=== PATIENT | female | born 2000 | race Asian ===

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

== ENCOUNTER 2018-07-24 17:26 | Inpatient (IN) | payer OTHER ==
--- NOTE | 2018-07-24 17:35 | ED ---
Psychiatric Complaint - HPI Summary HPI Summary: This pt is a 17 y/o female presenting to [facility] via EMS on a 9.45 for SI. Pt reports she told her friend about her suicidal plan and her friend walked her to the crisis center at [facility]. Pt spoke to a therapist at the crisis center and reported SI comments. Pt reports SI thoughts and plan of taking a knife from her kitchen at night time and going to one of the bushes around [place] to kill herself. She notes prior SI attempts of taking a knife to cut her wrist, although she states no recent attempts. Pt notes she has never been hospitalized for mental health in the past. She takes Lexapro and has been taking it for the past 2.5 years. - History Of Current Complaint Time Seen by Provider: 07/24/18 17:28 Hx Obtained From: Patient Hx Last Menstrual Period: 03/25/17 Onset/Duration: Lasting Days, Still Present Timing: Days Severity Currently: Severe Character: Depressed Aggravating Factor(s): Nothing Alleviating Factor(s): Nothing Related History: Positive For: Prior Psychiatric Issues Has Suicidal: Reports: Thoughts, With A Plan Has Homicidal: Denies: Thoughts, With A Plan - Allergies/Home Medications Allergies/Adverse Reactions: Allergies Allergy/AdvReac Type Severity Reaction Status Date / Time Sulfa (Sulfonamide Allergy Intermediate Hives Verified 07/24/18 17:58 Antibiotics) Home Medications: Home Medications Desloratidine (NF) [Clarinex (NF)] 5 mg PO DAILY 07/24/18 [History Confirmed ] Escitalopram (NF) [Lexapro 5 mg (NF)] 3.5 - 4 tab PO DAILY MDD 20 07/24/18 [ History Confirmed 07/24/18] LevoCETirizine TAB (NF) [Xyzal TAB (NF)] 5 mg PO BEDTIME 07/24/18 [History Confirmed 07/24/18] Levonorgestrel-Ethin Estradiol [Vienva-28 Tablet] 1 tab PO DAILY 07/24/18 [ History Confirmed 07/24/18] Triamcinolone 0.1% Cr 15gm -NF [Triamcinolone Acetonide] 1 applic TOPICAL BID [History Confirmed 07/24/18] PMH/Surg Hx/FS Hx/Imm Hx Endocrine/Hematology History: Denies: Hx Diabetes Cardiovascular History: Denies: Hx Hypertension, Hx Pacemaker/ICD History: Denies: Hx Dialysis, Hx Renal Disease Sensory History: Denies: Hx Hearing Aid Psychiatric History: Reports: Hx Anxiety, Hx Depression Denies: Hx Panic Disorder - Family History Known Family History: Positive: Other - depression - Social History Occupation: Student - at [employer] Alcohol Use: None Substance Use Type: Reports: Prescribed Smoking Status (MU): Never Smoked Tobacco Review of Systems Negative: Fever, Chills Cardiovascular: Negative Respiratory: Negative Psychological: Other - POS: SI thoughts with plan Positive: Depressed. Negative: Other - NEG: HI All Other Systems Reviewed And Are Negative: Yes Physical Exam - Summary Physical Exam Summary: Appearance: The patient is well-nourished in no acute distress and in no acute pain. Skin: The skin is warm and dry and skin color reflects adequate perfusion. HEENT: The head is normocephalic and atraumatic. The pupils are equal and reactive. The conjunctivae are clear and without drainage. Nares are patent and without drainage. Mouth reveals moist mucous membranes and the throat is without erythema and exudate. The external ears are intact. The ear canals are patent and without drainage. The tympanic membranes are intact. Neck: the neck is supple with full range of motion and non-tender. There are no carotid bruits. There is no neck vein distension. Respiratory: Chest is non-tender. Lungs are clear to auscultation and breath sounds are symmetrical and equal. Cardiovascular: Heart is regular rate and rhythm. There is no murmur or rub auscultated. There is no peripheral edema and pulses are symmetrical and equal. Abdomen: The abdomen is soft and non-tender. There are normal bowel sounds heard in all four quadrants and there is no organomegaly palpated. Musculoskeletal: There is no back tenderness noted. Extremities are non-tender with full range of motion. There is good capillary refill. There is no peripheral edema or calf tenderness elicited. Neurological: Patient is alert and oriented to person, place and time. The patient has symmetrical motor strength in all four extremities. Cranial nerves are grossly intact. Deep tendon reflexes are symmetrical and equal in all four extremities. Psychiatric: The patient has labile affect. Triage Information Reviewed: Yes Vital Signs On Initial Exam: Initial Vitals Temp Pulse Resp BP Pulse Ox 97.6 F 88 16 112/65 98 07/24/18 17:36 07/24/18 17:36 07/24/18 17:36 07/24/18 17:36 07/24/18 17:36 Vital Signs Reviewed: Yes Diagnostics - Laboratory Result Diagrams: 07/24/18 18:24 07/24/18 18:24 Lab Statement: Any lab studies that have been ordered have been reviewed, and results considered in the medical decision making process. Course/Dx - Course Assessment/Plan: Pt was medically cleared. She is waiting for a mental health evaluation. Pt will be signed out to Dr. Mar at shift change pending MHE. - Differential Dx/Clinical Impression Provider Diagnosis: Depression Discharge - Sign-Out/Discharge Documenting (check all that apply): Sign-Out Patient Signing out patient TO: Stephanie Mar - pending MHE Patient Received Moderate/Deep Sedation with Procedure: No - Discharge Plan Condition: Stable Referrals: [facility] - Vaibhav [Primary Care Provider] - - Billing Disposition and Condition Condition: STABLE - Attestation Statements Document Initiated by Scribe: Yes Documenting Scribe: Hetal Dexter Provider For Whom Scribe is Documenting (Include Credential): Mervin Hernadez MD Scribe Attestation: IHetal, scribed for Mervin Hernadez MD on 07/24/18 at 2144. Scribe Documentation Reviewed: Yes Provider Attestation: The documentation as recorded by the scribeHetal accurately reflects the service I personally performed and the decisions made by me, Mervin Hernadez MD Status of Scribe Document: Viewed
--- OUTSIDE RECORDS SUMMARY | 2018-07-24 18:05 | XMS REPORT | Continuity of Care Document ---
:2000 External Reference #:[id number] Author Name Liz Chapman Care Team Providers Name Role Phone [facility] Primary Care Physician Unavailable Payers Date Identification Numbers Payment Provider Subscriber Policy Number: [id number] [employer] Student [employer] Dell Freeman PayID: [id number] [address] [place] [address] Advance Directives Description No Information Available Problems Description No Information Family History Date Family Member(s) Observation Comments General Cancer General Heart Disease General Hypertension General Stroke Social History Type Date Description Comments Sex Unknown Lives With Alone Occupation Unemployed Occupation Student Tobacco Use Start: Unknown Patient has never smoked Smoking Status Reviewed: 07/12/18 Patient has never smoked Allergies, Adverse Reactions, Alerts Date Description Reaction Status Severity Comments 07/12/2018 Sulfa Antibiotics Active swelling Medications Medication Date Status Form Strength Qnty SIG Indications Ordering Provider Lexapro Active Unknown 000 Loratadine Active Unknown 000 Levocetirizine Active Tablets 5mg 1 every Unknown Dihydrochloride 000 day as needed Vienva Active Tablets 0.1-20mg-m Unknown 000 cg Hydroxyzine HCL Active Tablets 10mg 1-2 tabs Unknown 000 po prn Immunizations Description No Information Available Vital Signs Date Vital Result Comment 07/12/2018 10:02am Height 63.50 inches 5'3.50" Weight 128.00 lb BP Systolic 118 mmHg BP Diastolic 68 mmHg Respiratory Rate 14 /min Body Temperature 97.2 F Pain Level 2 BMI (Body Mass Index) 22.3 kg/m2 Height Percentile 38 % Weight Percentile 50th Results Description No Information Available Procedures Description No Information Available Encounters Description No Information Available Plan of Treatment 07/12/2018 - Danitza Newberry M.D.S62.024A Nondisplaced fracture of middle third of navicular [scaphoidFollow up:Follow up: after testing is completed
--- OUTSIDE RECORDS SUMMARY | 2018-07-24 18:05 | XMS REPORT | Continuity of Care Document ---
:2000 External Reference #:[id number] Author Name Ronaldo Rich MD Address [address] [place] [address] Care Team Providers Name Role Phone Za El DO Care Team Information [employer] Unavailable Za El DO Primary Care Physician Unavailable Payers Type Date Identification Numbers Payment Provider Subscriber Policy Number: [id number] Wolfgang Freeman PayID: [id number] [address] [place] [phone] Advance Directives Description No Information Available Problems Date Description Provider Status Onset: 07/06/2018 Allergic urticaria Ronaldo Rich MD Active Onset: 07/06/2018 Allergic rhinitis Ronaldo Rich MD Active Onset: 07/06/2018 Allergic rhinitis due to pollen Ronaldo Rich MD Active Family History Date Family Member(s) Problem(s) Comments General Unknown Social History Type Date Description Comments Sex Unknown Smoke-Free Home is smoke-free Pets None Tobacco Use Start: Unknown Patient has never smoked Tobacco Use Start: Unknown No Second Hand Smoke Exposure Smoking Status Reviewed: 07/06/18 No Second Hand Smoke Exposure Allergies, Adverse Reactions, Alerts Date Description Reaction Status Severity Comments 07/06/2018 Sulfa Antibiotics Active Medications Medication Date Status Form Strength Qnty SIG Indications Ordering Provider Triaminicinoline 07/06 Active apply to affected Zulay Rich MD areas Lexapro 07/06 Active Tablets 15mg 30tab 1 by s mouth Zulay Rich MD every day Desloratadine 07/06 Active Tablets 5mg 30tab take one J30.1 s tablet po Zulay Rich MD qam Xyzal Allergy 07/06 Active Tablets 5mg 30tab take 1 J30.1 24HR /2018 s tablet (5 Zulay Rich MD mg) po qhs Epipen 2-Patel 07/06 Active Solution 0.3mg/0.3 4unit as J30.1 Auto-Injec ML s nathalie Rich MD t Aviane Active Tablets 0.1-20mg- 1 by Unknown /0000 mcg mouth every day Claritin Hx Tablets 10mg one Unknown /0000 tablet by - mouth 07/06 morning Flonase Hx Suspension 50mcg/Act use two Unknown /0000 sprays in - each 07/06 nostril daily Singulair Hx Tablets 10mg 10mg by Unknown /0000 mouth - daily at 07/06 bedtime Immunizations Description No Information Available Vital Signs Date Vital Result Comment 07/06/2018 10:50am BP Systolic 123 mmHg BP Diastolic 81 mmHg Height 60 inches 5'0" Weight 125.00 lb BMI (Body Mass Index) 24.4 kg/m2 Heart Rate 110 /min Respiratory Rate 16 /min O2 % BldC Oximetry 98 % Results Test Date Facility Test Result H/L Range Note Laboratory test 07/06/2018 [facility] <pending> finding Order Order 07/06/2018 [facility] Epinephrine <pending> Injector Training Skin Test Seasonal and Environmental <pending> Procedures Date Code Description Status 07/06/2018 45415 Allergy Tests Percutaneous W/ Allergenic Extracts Completed Encounters Description No Information Available Plan of Treatment 07/06/2018 - Ronaldo Rich MDJ30.1 Allergic rhinitis due to pollenNew Medication:Desloratadine 5 mg - take one tablet po qamXyzal Allergy 24HR 5 mg - take 1 tablet (5 mg) po qhsEpipen 2-Patel 0.3 mg/0.3ML - as jlrtobgcG10.89 Other allergic qwchqchnC85.0 Allergic urticaria
--- OUTSIDE RECORDS SUMMARY | 2018-07-24 18:05 | XMS REPORT | Continuity of Care Document ---
:1998 External Reference #:[id number] Author Name Alvaro Ferguson Care Team Providers Name Role Phone Za El DO Care Team Information Contour Stitcher Unavailable Za El DO Primary Care Physician Unavailable Payers Type Date Identification Numbers Payment Provider Subscriber Policy Number: [id number] Wolfgang Freeman PayID: [id number] [address] [address] [place] [address] Advance Directives Description No Information Available Problems Description No Information Family History Description No Information Available Social History Type Date Description Comments Sex Unknown Allergies, Adverse Reactions, Alerts Date Description Reaction Status Severity Comments 07/06/2018 Sulfa Antibiotics Active Medications Medication Date Status Form Strength Qnty SIG Indications Ordering Provider Triaminicinoline 07/06 Active apply to affected Zulay Rich MD areas Lexapro 07/06 Active Tablets 15mg 30tab 1 by s mouth Zulay Rich MD every day Claritin Active Tablets 10mg one Unknown /0000 tablet by mouth every morning Flonase Active Suspension 50mcg/Act use two Unknown /0000 sprays in each nostril daily Aviane Active Tablets 0.1-20mg- 1 by Unknown /0000 mcg mouth every day Singulair Active Tablets 10mg 10mg by Unknown /0000 mouth daily at bedtime Immunizations Description No Information Available Vital Signs Date Vital Result Comment 07/06/2018 10:50am BP Systolic 123 mmHg BP Diastolic 81 mmHg Height 60 inches 5'0" Weight 125.00 lb BMI (Body Mass Index) 24.4 kg/m2 Heart Rate 110 /min Respiratory Rate 16 /min O2 % BldC Oximetry 98 % Results Description No Information Available Procedures Description No Information Available Encounters Description No Information Available Plan of Treatment No Information Available
[2018-07-24] MEDS ORDERED: Nicotine Inhaler* 10 MG AMP INH PRN (18:13)
[2018-07-24 18:30] LABS: ABS Basophils 0.1 10^3/ul (0-0.2); ABS Eosinophils 0.1 10^3/ul (0-0.6); ABS Lymphocytes 1.7 10^3/ul (1.0-4.8); ABS Monocytes 0.6 10^3/ul (0-0.8); ABS Neutrophils 8.3 10^3/ul (1.5-7.7); ABS Nucleated RBC 0 10^3/ul; Eosinophil % 0.7 %; Hematocrit 36 % (35-47); Hemoglobin 12.2 g/dl (12.0-16.0); Lymphocyte % 15.7 %; Mean Corpuscular HGB Conc 34 g/dl (31-36); Mean Corpuscular Hemoglobin 32 pg (27-31); Mean Corpuscular Volume 94 fL (80-97); Mean Platelet Volume 7.1 fL (7.4-10.4); Nucleated Red Blood Cells % 0; Platelet Count 345 10^3/ul (150-450); Red Blood Count 3.83 10^6/ul (4.00-5.40); Red Cell Distribution Width 13 % (10.5-15); White Blood Count 10.8 10^3/ul (3.5-10.8)
[2018-07-24 18:51] LABS: ALT 25 U/L (7-52); AST 18 U/L (13-39); Albumin 4.2 g/dL (3.2-5.2); Albumin/Globulin Ratio 1.6 (1-3); Alkaline Phosphatase 39 U/L (34-104); Anion Gap 7 mmol/L (2-11); Blood Urea Nitrogen 13 mg/dL (6-24); CO2 Carbon Dioxide 26 mmol/L (22-32); Calcium 9.2 mg/dL (8.6-10.3); Chloride 105 mmol/L (101-111); EGFR African American 110.2 (>60); EGFR Non-African American 91.1 (>60); Globulin 2.7 g/dL (2-4); Glucose 116 mg/dL (70-100); Potassium 3.8 mmol/L (3.5-5.0); Sodium 138 mmol/L (135-145); Total Protein 6.9 g/dL (6.4-8.9)
[2018-07-24 18:55] LABS: Urine Appearance Cloudy; Urine Bacteria Absent (Absent); Urine Bilirubin Negative (Negative); Urine Blood Negative (Negative); Urine Color Yellow; Urine Glucose Negative (Negative); Urine Ketones Negative (Negative); Urine Nitrite Negative (Negative); Urine Protein Negative (Negative); Urine Red Blood Cell Trace(0-2/hpf) (Absent); Urine Specific Gravity 1.018 (1.010-1.030); Urine Squamous Epithelial Cell Present (Absent); Urine Urobilinogen Negative (Negative); Urine White Blood Cell 2+(11-20/hpf) (Absent)
[2018-07-24 19:12] LABS: Acetaminophen < 15 mcg/mL; Alcohol < 10 mg/dL (<10); Salicylate < 2.50 mg/dL (<30)
[2018-07-24 19:15] LABS: Barbiturates Urine Screen None Detected (None Detect); Benzodiazepine Urine Screen None Detected (None Detect); Urine Cannabinoids Screen None Detected (None Detect)
[2018-07-24 19:27] LABS: TSH (Thyroid Stimulating Horm) 0.85 mcIU/mL (0.34-5.60)
[2018-07-24 19:58] LABS: HCG Pregnancy < 0.60 mIU/mL
--- NOTE | 2018-07-24 22:59 | ED ---
Progress - Progress Note Progress Note: Pt is a signout from Dr. Hernadez pending MHE. The pt will be an involuntary admission for depressive disorder under Dr. Ochoa. Course/Dx - Course Course Of Treatment: Pt is a signout from Dr. Hernadez. The pt will be involuntarily admitted to [facility] for depressive disorder under Dr. Ochoa. - Diagnoses Provider Diagnoses: Depressive disorder Discharge - Sign-Out/Discharge Documenting (check all that apply): Patient Departure - Discharge Plan Condition: Stable Disposition: ADMITTED TO [facility] Referrals: [facility] - Vaibhav [Primary Care Provider] - - Attestation Statements Document Initiated by Scribe: Yes Documenting Scribe: Sidra Frank Provider For Whom Scribe is Documenting (Include Credential): Stephanie Mar MD. Scribe Attestation: Sidra Aguilar, scribed for Stephanie Mar MD. on 07/24/18 at 1472. Status of Scribe Document: Ready
[2018-07-24] MEDS ORDERED: Mouth Piece, Nicotine* 1 EACH CARTRIDGE INH ONE (23:00)
[2018-07-25] MEDS ORDERED: Acetaminophen TAB* 325 MG PO PRN (01:30)
[2018-07-25] MEDS ORDERED: Al Hydrox/Mg Hydrox/Simet LIQ* 30 ML UDC PO PRN (01:30)
[2018-07-25] MEDS: Vitamin THERAPEUTIC TAB PO SCH (09:06)
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
[2018-07-25] MEDS ORDERED: Citalopram TAB* 40 MG PO SCH (11:00)
[2018-07-25] MEDS ORDERED: CMC:Escitalopram (NF) 20 MG TAB PO SCH (12:00)
[2018-07-25] MEDS: CMC:LoraTADine TAB(NF) 10 MG TAB PO SCH (13:51)
--- NOTE | 2018-07-25 16:16 | PN ---
BSU: Group Therapy Note - Service Type Service Type: [id number] Group Psychotherapy - Medication Education Group: Patient was attentive and participatory in group, and remained in good behavioral control. Patient expressed positive insights regarding relevant treatment interventions. Patient stated understanding of material discussed and had appropriate questions.
[2018-07-25] MEDS ORDERED: LevoCETirizine TAB (NF) 5 MG TAB PO SCH (21:00)
[2018-07-25] MEDS ORDERED: traZODone TAB* 50 MG TAB PO SCH (21:00)
[2018-07-26 08:27] LABS: HDL Cholesterol 50.4 mg/dL
[2018-07-26] MEDS: Vitamin THERAPEUTIC TAB PO SCH (09:57)
[2018-07-26] MEDS: CMC:Escitalopram (NF) 10 MG TAB PO SCH (09:57)
[2018-07-26] MEDS: CMC:LoraTADine TAB(NF) 10 MG TAB PO SCH (10:12)
--- NOTE | 2018-07-26 10:24 | PN ---
Subjective - Subjective Date of Service: 07/26/18 Service Type: [id number] Hosp care 25 min moderate complexity Subjective: Nursing Report: Patient was visible on unit, no chemical restraints or PRNs. Slept overnight without incident. Attending group activities. CC: "I am doing better Patient was seen and evaluated by this provider in the common room. The patient reported she feels safe on the unit and is interacting with peers. She reported having an adequate appetite and sleep. The patient reports attending and participating in day groups. Per nursing no behavioral issues or overnight events reported. Patient reported that she is tolerating medications without side effects. She denied suicidal ideation, intent or plan. She denied homicidal ideation intent or plan. She denied auditory and or visual hallucinations. She wants to leave because her boyfriend is going to the [facility] and wants to see him before he leaves. Objective - Appearance Appearance: Healthy Appearing Dysmorphic Features: No Hygiene: Normal Grooming: Well Kept - Behavior Psychomotor Activities: Normal Exhibits Abnormal Movement: No - Attitude and Relatedness Attitude and Relatedness: Appropriate Eye Contact: Fair - Speech Quality: Unpressured Latencies: Normal Quantity: Appropriate - Mood Patient's Decription of Mood: "Okay" - Affect Observed Affect: Tearful Affect Consistent with: Dysphoria - Thought Process Patient's Thought Process: Goal Directed Thought Content: No Passive Wish, No Suicidal Planning, No Homicidal Ideation, No Paranoid Ideation - Sensorium Experiencing Hallucinations: No, Sensorium is Clear Type of Hallucinations: Visual: No, Auditory: No, Command: No - Level of Consciousness Level of Consciousness: Alert Orientation: Yes Intact, Yes Orientated to Time, Yes Orientated to Place, Yes Orientated to Person - Impulse Control Impulse Control: Tenuous - Insight and Judgement Insight and Judgement: Fair - Group Participation Particating in Group Activities: Yes - Medication Management Medication Management Adherence: Yes Assessment - Assessment Merits Inpatient Hospitalization: For Immediate Safety Clinical Impression: 17 year old female with recent suicidal ideation with plan to cut wrist admitted to the BSU Plan - Plan Treatment Plan: Name: BHAVYA BANUELOS Birthdate: 2000 [id number] D/C Trazodone Start melatonin 2mg at nighttime Q30 minute and staff pass privileges Computer access Plan to discharge Monday. Continue lexapro 20mg daily Acetaminophen (Tylenol Tab*) 650 mg PO Q4H PRN PRN Reason: PAIN or TEMP > 101 F Al Hydrox/Mg Hydrox/Simethicone (Maalox Plus*) 30 ml PO Q4H PRN PRN Reason: INDIGESTION Cetirizine HCl (Zyrtec*) 10 mg PO 2099 [facility] Escitalopram Oxalate (Lexapro (Nf)) 20 mg PO DAILY [facility] Last Admin: 07/26/18 09:57 Dose: 20 mg Loratadine (Claritin Tab(Nf)) 5 mg PO DAILY [facility] Last Admin: 07/26/18 10:12 Dose: 5 mg Melatonin (Melatonin) 3 mg PO 2099 [facility]; Protocol Multivitamins (Theragran Tab*) 1 tab PO DAILY [facility] Last Admin: 07/26/18 09:57 Dose: 1 tab Sodium 138 mmol/L (135-145) 07/24/18 18:24 Potassium 3.8 mmol/L (3.5-5.0) 07/24/18 18:24 BUN 13 mg/dL (6-24) 07/24/18 18:24 Creatinine 0.81 mg/dL (0.51-0.95) 07/24/18 18:24 Hemoglobin A1c 5.4 % (4.0-5.6) 07/26/18 07:52 Calcium 9.2 mg/dL (8.6-10.3) 07/24/18 18:24 AST 18 U/L (13-39) 07/24/18 18:24 ALT 25 U/L (7-52) 07/24/18 18:24 Triglycerides 105 mg/dL 07/26/18 07:39 Cholesterol 197 mg/dL 07/26/18 07:39 LDL Cholesterol 126 mg/dL 07/26/18 07:39 Vital Signs Temp Pulse Resp BP Pulse Ox 98.1 F 86 16 113/59 99 07/26/18 08:05 07/26/18 08:05 07/26/18 14:38 07/26/18 08:05 07/26/18 08:05 Continued Medication Management: Continue Outpt Medication Medications: Current Medications Acetaminophen (Tylenol Tab*) 650 mg PO Q4H PRN PRN Reason: PAIN or TEMP > 101 F Al Hydrox/Mg Hydrox/Simethicone (Maalox Plus*) 30 ml PO Q4H PRN PRN Reason: INDIGESTION Cetirizine HCl (Zyrtec*) 10 mg PO 2100 [facility] Escitalopram Oxalate (Lexapro (Nf)) 20 mg PO DAILY [facility] Last Admin: 07/26/18 09:57 Dose: 20 mg Loratadine (Claritin Tab(Nf)) 5 mg PO DAILY [facility] Last Admin: 07/26/18 10:12 Dose: 5 mg Multivitamins (Theragran Tab*) 1 tab PO DAILY [facility] Last Admin: 07/26/18 09:57 Dose: 1 tab - Discharge Plan Discharge Plan: Inpatient Hospitalization
[2018-07-26 11:01] LABS: Hepatitis C Antibody Nonreactive (Nonreactive)
--- NOTE | 2018-07-26 11:38 | PN ---
BSU: Group Therapy Note - Service Type Service Type: [id number] Group Psychotherapy - Cognitive Behavioral Group Therapy ( CBT):Patient was attentive and participatory in CBT programming this morning, and remained in good behavioral control. Patient expressed positive insights regarding relevant treatment interventions and goals.
[2018-07-26] MEDS ORDERED: Cetirizine* 10 MG TAB PO SCH (21:00)
[2018-07-26] MEDS ORDERED: Melatonin 3 MG TAB PO SCH (21:00)
--- NOTE | 2018-07-27 08:46 | PN ---
Assessment - Assessment Clinical Impression: 17 year old female with recent suicidal ideation with plan to cut wrist admitted to the BSU Plan - Plan Treatment Plan: Name: BHAVYA BANUELOS Birthdate: 2000 [id number] D/C Trazodone Start melatonin 2mg at nighttime Q30 minute and staff pass privileges Computer access Plan to discharge Monday. Continue lexapro 20mg daily Acetaminophen (Tylenol Tab*) 650 mg PO Q4H PRN PRN Reason: PAIN or TEMP > 101 F Al Hydrox/Mg Hydrox/Simethicone (Maalox Plus*) 30 ml PO Q4H PRN PRN Reason: INDIGESTION Cetirizine HCl (Zyrtec*) 10 mg PO 2100 [facility] Escitalopram Oxalate (Lexapro (Nf)) 20 mg PO DAILY [facility] Last Admin: 07/26/18 09:57 Dose: 20 mg Loratadine (Claritin Tab(Nf)) 5 mg PO DAILY [facility] Last Admin: 07/26/18 10:12 Dose: 5 mg Melatonin (Melatonin) 3 mg PO 2100 [facility]; Protocol Multivitamins (Theragran Tab*) 1 tab PO DAILY [facility] Last Admin: 07/26/18 09:57 Dose: 1 tab Sodium 138 mmol/L (135-145) 07/24/18 18:24 Potassium 3.8 mmol/L (3.5-5.0) 07/24/18 18:24 BUN 13 mg/dL (6-24) 07/24/18 18:24 Creatinine 0.81 mg/dL (0.51-0.95) 07/24/18 18:24 Hemoglobin A1c 5.4 % (4.0-5.6) 07/26/18 07:52 Calcium 9.2 mg/dL (8.6-10.3) 07/24/18 18:24 AST 18 U/L (13-39) 07/24/18 18:24 ALT 25 U/L (7-52) 07/24/18 18:24 Triglycerides 105 mg/dL 07/26/18 07:39 Cholesterol 197 mg/dL 07/26/18 07:39 LDL Cholesterol 126 mg/dL 07/26/18 07:39 Vital Signs Temp Pulse Resp BP Pulse Ox 98.1 F 86 16 113/59 99 07/26/18 08:05 07/26/18 08:05 07/26/18 14:38 07/26/18 08:05 07/26/18 08:05 Medications: Current Medications Acetaminophen (Tylenol Tab*) 650 mg PO Q4H PRN PRN Reason: PAIN or TEMP > 101 F Al Hydrox/Mg Hydrox/Simethicone (Maalox Plus*) 30 ml PO Q4H PRN PRN Reason: INDIGESTION Cetirizine HCl (Zyrtec*) 10 mg PO 2100 [facility] Last Admin: 07/26/18 20:56 Dose: 10 mg Escitalopram Oxalate (Lexapro (Nf)) 20 mg PO DAILY [facility] Last Admin: 07/26/18 09:57 Dose: 20 mg Loratadine (Claritin Tab(Nf)) 5 mg PO DAILY [facility] Last Admin: 07/26/18 10:12 Dose: 5 mg Melatonin (Melatonin) 3 mg PO 2100 [facility]; Protocol Last Admin: 07/26/18 20:56 Dose: 3 mg Multivitamins (Theragran Tab*) 1 tab PO DAILY [facility] Last Admin: 07/26/18 09:57 Dose: 1 tab
[2018-07-27] MEDS: Vitamin THERAPEUTIC TAB PO SCH (09:05)
[2018-07-27] MEDS: CMC:LoraTADine TAB(NF) 10 MG TAB PO SCH (09:05)
[2018-07-27] MEDS: CMC:Escitalopram (NF) 10 MG TAB PO SCH (09:05)
[2018-07-27 09:44] VITALS: BP 118/66
--- NOTE | 2018-07-27 11:52 | PN ---
BSU: Group Therapy Note - Service Type Service Type: [id number] Group Psychotherapy - Cognitive Behavioral Group Therapy ( CBT):Patient was attentive and participatory in CBT programming this morning, and remained in good behavioral control. Patient expressed positive insights regarding relevant treatment interventions and goals.
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
[2018-07-27 15:07] LABS: Herpes Simplex Virus I IgG AB Positive (Negative); Herpes Simplex Virus II IgG AB Negative (Negative)
== END 2018-07-27 15:00 | disposition home or self-care (01) | DRG 881 ==
LOC: ED 17:26 → BSU 07-25 00:24
PROVIDERS: ADMIT Psychiatry & Neurology Psychiatry; ATTEND Psychiatry & Neurology Psychiatry
PROC: GZHZZZZ Group Psychotherapy (ICD-10-PCS; principal; 2018-07-25)
DX: F32.9 Major depressive disorder, single episode, unspecified (principal); R45.851 Suicidal ideations; Z62.810 Personal history of physical and sexual abuse in childhood; J30.1 Allergic rhinitis due to pollen; F41.9 Anxiety disorder, unspecified; Z91.5 Personal history of self-harm; Z88.2 Allergy status to sulfonamides; Z81.8 Family history of other mental and behavioral disorders
CPT/HCPCS: 36415; 80053; 80061; 80307; 80320; 80329; 81003; 81015; 83036; 84443; 84702; 85025; 86592; 86695; 86696; 86703; 86803; 87086; 90853; 99222; 99232; 99238; 99284; A9270-GY; G0480

== ENCOUNTER 2019-07-07 09:31 | Emergency (ER) | payer OTHER ==
[2019-07-07 10:25] VITALS: BP 105/70
[2019-07-07 10:52] LABS: Influenza B Molecular POSITIVE (Negative)
--- NOTE | 2019-07-07 10:59 | UC ---
FLU HPI - HPI Summary HPI Summary: 18 y/o female presents to the urgent care c/o fever, nasal congestion w/ clear nasal discharge, body aches, VALENZUELA, and dry cough since Monday night 07/05/2019. Pt reports fever of 102F last night. She has been taken OTC medications to alleviate symptoms. Pt states sore throat and VALENZUELA is 6/10. Pt feels fatigue. Pt denies SOB, dizziness, chest pain,abdominal pain, N/V/d, rahs neck pain, or wheezing. Pt is UTD w/ all vaccines for her age. - History of Current Complaint Chief Complaint: UCGeneralIllness Stated Complaint: FEVER Time Seen by Provider: 07/07/19 10:50 Hx Last Menstrual Period: 06/20/19 ?: No Onset/Duration: Gradual Onset, Lasting Days - 3 days, Still Present, Worse Since - today Severity Currently: Mild Severity Initially: Moderate Pain Intensity: 6 Pain Scale Used: 0-10 Numeric Associated Signs & Symptoms: Positive: Fever, T Max - 102F, Myalgia, Cough - dry , Sore Throat, Nasal Congestion - clear, Headache Related Hx: Possible Flu/Infectious Exposure - Risk Factors Influenza Risk Factors: Negative - Allergy/Home Medications Allergies/Adverse Reactions: Allergies Allergy/AdvReac Type Severity Reaction Status Date / Time Sulfa (Sulfonamide Allergy Intermediate Hives Verified 07/07/19 10:25 Antibiotics) PMH/Surg Hx/FS Hx/Imm Hx Previously Healthy: Yes - Pt denies PMHX - Surgical History Surgical History: None - Family History Known Family History: Positive: Diabetes, Other - depression Family History: dyslipidemia - Social History Occupation: Employed Full-time, Student Lives: With Family Alcohol Use: None Substance Use Type: Prescribed Smoking Status (MU): Never Smoked Tobacco - Immunization History Most Recent Influenza Vaccination: 2018 Most Recent Pneumonia Vaccination: Never Review of Systems All Other Systems Reviewed And Are Negative: Yes Constitutional: Positive: Fever, Chills, Fatigue, Other - body aches Skin: Positive: Negative Eyes: Positive: Negative ENT: Positive: Sore Throat - mild, Nasal Discharge - clear, Sinus Congestion Respiratory: Positive: Cough - dry Cardiovascular: Positive: Negative Gastrointestinal: Positive: Negative Genitourinary: Positive: Negative Motor: Positive: Negative Neurovascular: Positive: Negative Musculoskeletal: Positive: Myalgia Neurological: Positive: Headache Psychological: Positive: Negative Is Patient Immunocompromised?: No Physical Exam - Summary Physical Exam Summary: VITAL SIGNS: Reviewed. GENERAL: Patient is a well developed and nourished female who is sitting comfortably in the examining table. Patient is not in any acute respiratory distress. HEAD AND FACE: No signs of trauma. No ecchymosis, hematomas or skull depressions. No sinus tenderness. EYES: PERRLA, EOMI x 2, No injected conjunctiva, no nystagmus. No photophobia. EARS: Hearing grossly intact. Ear canals and tympanic membranes are within normal limits. MOUTH: Positive pharynx with mild erythema, no exudates, No B/L tonsillar enlargement , no exudate. Uvula in midline. edematous nasal mucosa w/ clear nasal discharge, clear PND NECK: Supple, trachea is midline, Positive anterior cervical lymphadenopathy, no JVD, no carotid bruit, no c-spine tenderness, neck with full ROM. No meningeal signs, no Kernig's or brudzinskis signs. CHEST: Symmetric, no tenderness at palpation LUNGS: Clear to auscultation bilaterally. No wheezing or crackles. CVS: Regular rate and rhythm, S1 and S2 present, no murmurs or gallops appreciated. ABDOMEN: Soft, non-tender. No signs of distention. No rebound no guarding, and no masses palpated. Bowel sounds are normal. EXTREMITIES: FROM in all major joints, no edema, no cyanosis or clubbing. NEURO: Alert and oriented x 3. No acute neurological deficits. Pt follows commands. SKIN: Dry and warm Triage Information Reviewed: Yes Vital Signs: Initial Vital Signs Temp 97.2 F 07/07/19 10:22 Pulse 100 07/07/19 10:22 Resp 20 07/07/19 10:22 BP 105/70 07/07/19 10:22 Pulse Ox 98 07/07/19 10:22 Flu Course/Dx - Course Course Of Treatment: 18 y/o female presents to the urgent care c/o fever, nasal congestion w/ clear nasal discharge, body aches, VALENZUELA, and dry cough since Monday night 07/05/2019. Pt reports fever of 102F last night. She has been taken OTC medications to alleviate symptoms. Pt states sore throat and VALENZUELA is 6/10. Pt feels fatigue. Pt denies SOB, dizziness, chest pain,abdominal pain, N/V/d, rahs neck pain, or wheezing. Pt is UTD w/ all vaccines for her age. Hx obtained. Pt with URI on examination. Rapid Influenza A&B ordered: result: Influenza B positive.Pt Rx Tamiflu and ibuprofen PO to alleviates symptoms. Advised on hand washing and wear a mask to avoid spreading. Pt advised to rest, increase fluid intake, eat well and avoid strenuous exercise. If symptoms do not improve or worsen advised to return to the urgent care or f/u with her PCP for further evaluation and treatment. Pt understood and agreed - Differential Dx/Diagnosis Differential Diagnosis/HQI/PQRI: Bronchitis, Influenza, Pneumonia, Upper Respiratory Infection Provider Diagnosis: Influenza B Discharge ED - Sign-Out/Discharge Documenting (check all that apply): Patient Departure - D/C home All imaging exams completed and their final reports reviewed: No Studies - Discharge Plan Condition: Stable Disposition: HOME Prescriptions: Ibuprofen TAB* [Motrin TAB* 800 MG] 800 mg PO Q6H PRN #30 tab PRN Reason: pain/ fever Oseltamivir CAP* [Tamiflu CAP*] 75 mg PO BID #10 cap Patient Education Materials: Influenza (ED) Forms: *School Release Referrals: [facility] REFERRAL [Outside] - 3 Days Additional Instructions: 1- Please take the full course of the antiviral to avoid resistance. Encourage hand washing and wear a mask to avoid spreading. 2-Please continue taking Ibuprofen PO q6-8hrs prn as instructed after meals to alleviate fever, and sore throat. Increase fluid intake, eat well, rest and avoid strenuous exercise 3-If symptoms do not improve please return to the urgent care or f/u with your PCP in 2 days for further evaluation and treatment. However if symptoms worse w / severe fever, SOB, please go immediately to the ER for further management - Billing Disposition and Condition Condition: STABLE Disposition: Home
== END 2019-07-07 11:20 | disposition home or self-care (01) ==
LOC: UCEAST 09:31
DX: J10.1 Influenza due to other identified influenza virus with other respiratory manifestations (principal); Z88.2 Allergy status to sulfonamides
CPT/HCPCS: 99212; G0463